=== PATIENT | male | born 1945 | race Two or more races ===

== ENCOUNTER → 2016-03-14 | Day surgery (SDC) | payer OTHER ==
[~2016-03-14] MED LIST: BUPIVACAINE HCL PF 0.75% 30 ML VIAL ONE; CLINDAMYCIN PHOS 600 MG/4 ML VIAL ONE; LACTATED RINGER'S 1000 ML INJ 1,000 ML ONE; LIDOCAINE 1.5%/EPINEPHrine 1:200,000 PF SOLN 30 ML AMP ONE; MIDAZOLAM HCL 5 MG/ML VIAL (1 ML) ONE; PROPOFOL 200 MG/20 ML AMP IV ONE; SODIUM CHLORIDE 0.9% SOLN 100 ML BAG IV ONE
--- NOTE | 2016-03-17 13:07 | MP ---
cc: HAYLIE SMITH M.D. DATE OF SURGERY 03/14/2016 PREOPERATIVE DIAGNOSIS Left glenoid superior and posterior tears with large posterior, inferior paralabral cyst. POSTOPERATIVE DIAGNOSIS 1. Left shoulder unstable SLAP tear (superior labral, anterior to posterior) tear. 2. Left shoulder large posterior labral tear. 3. Large posterior inferior paralabral cyst. 4. 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 PROCEDURE 1. Left shoulder arthroscopic superior labral repair using Arthrex three BioComposite suture anchors with FiberWire suture. 2. Left shoulder arthroscopic posterior labral repair with five anchors. ANESTHESIA Interscalene block and general SURGEON Haylie Smith MD DIRECT CARE WORKER SURGEON Matias De Leon ESTIMATED BLOOD LOSS Minimum DRAINS None SPECIMEN None COMPLICATIONS None known. INDICATION Fabian Sanchez is a 70-year-old male who sustained a work-related injury to his dominant left shoulder some time ago. He was treated with conservative management and ultimately this has failed and he has significant findings on MRI. He has had limited improvement with intra-articular steroid injection. He is offered surgical intervention for the labral pathology and the debridement of the paralabral cyst. The risks and benefits were thoroughly discussed and no guarantees were offered. A detailed informed consent was obtained. PROCEDURE The patient brought into the operating room. He had been given an interscalene block in the preop holding area. He was placed under general anesthetic in the lateral decubitus position left shoulder up. The left shoulder draped and prepped in the usual sterile fashion. IV antibiotics given. Time-out was completed. The itinerant teacher assistant Matias De Leon is an advanced registered nurse practitioner and his skill set was medically necessary for the performance of the operation. He helped with patient positioning, fine-tuning the position of the arm throughout the procedure, as well as the position of the arthroscope so that two hands could be used by the undersigned to perform the various repairs. The patient was in a lateral position, 10 pounds of traction. The left shoulder was draped and prepped in the usual sterile fashion. IV antibiotics had been given. Time-out was completed. We ekta the bony landmarks of the shoulder. We made our posterior portal slightly higher than normal. I introduced the arthroscope. The first photograph shows some mild undersurface fraying of the rotator cuff and articular surface, mild fraying. The biceps tendon appeared normal. We made our medial portal, brought our probe in, the first photograph shows the probe in the superior labrum which was unstable. We then brought the shaver and from this angle and shaved and trimmed any unstable tissue along the articular surface, the undersurface of the rotator cuff, the superior labrum, smoothed and fine-tuned and we photographed the posterior humeral head which had a smooth surface, but was worn down to bone and we photographed the posterior labral tear and the entrance to the paralabral cyst. We then proceeded to debride, smooth and fine-tune and debride into the paralabral cyst and removed the cyst and superiorly we identified the unstable superior labral tear and we brought this to bleeding bone and then proceeded with the repair. We used one anchor immediately anterior to the edge of the biceps tendon, one anchor immediately posteriorly and we passed this with a 90 degrees suture lasso and tied our suture first one just anterior to the biceps, second one just posterior the biceps and a third one about 1 cm posterior to this. We photographed this. We then switched and brought the arthroscope in from anterior and then we further debrided the posterior labrum unstable fibers and debrided along the neck and we had exposed bone on the glenoid with the plan to pull labrum up and cover this. Also at the 6 o'clock position, the labrum was detached so our most inferior anchor was all the way at about the 05:30 position on the face of the clock so that when we sewed this up, it pulled the inferior labrum up into position and then we placed an anchor just above this. We had one anchor which would not properly deploy and we went around it and ultimately had five good anchors posteriorly tying the labrum down to a very sturdy bumper type repair and probing this showed it to be stable and we have the labrum on top of the exposed bone and we took our final photograph demonstrating that. Repeat diagnostic arthroscopy revealed no loose bodies, smooth surfaces throughout. The arthroscopic equipment was removed. We closed with absorbable sutures. Steri-Strips applied. Sterile dressing applied. The patient was awoken and returned to the recovery room in stable condition. MD URMILA Rose/TEREZA /10:05 AM /12:51 PM
== END | disposition home or self-care (01) ==
LOC: ESDC 06:03
PROVIDERS: ATTEND Orthopaedic Surgery Sports Medicine
DX: S43.432A Superior glenoid labrum lesion of left shoulder, initial encounter (principal); M94.212 Chondromalacia, left shoulder; M19.012 Primary osteoarthritis, left shoulder
CPT/HCPCS: 01630; 01991; 29807; 64417; C1713; J2250; J7120